=== PATIENT | male | born 1965 | race Caucasian/White ===

== ENCOUNTER → 2017-05-25 | Day surgery (SDC) | payer OTHER ==
[~2017-05-25] MED LIST: DEXAMETHASONE SOD PHOS 20 MG/5 ML VIAL.; FAMOTIDINE 20 MG/2 ML VIAL; LIDOCAINE 1% PF 2 ML VIAL. ID; MIDAZOLAM HCL/PF 2 MG/2 ML VIAL.; MORPHINE SULFATE 2 MG/ML DISP.SYRIN. IV; ONDANSETRON PF 4 MG/2 ML VIAL.; PROCHLORPERAZINE 10 MG/2 ML VIAL. IV; PROPOFOL 20 ML IV; ROCURONIUM 50 MG/5 ML VIAL.; SEVOFLURANE 61 TO 120 MINUTES. IH; ceFAZolin 2GM PREMIX 2 GM/50 ML BAG IV; fentaNYL PF VIAL 100 MCG/2 ML VIAL; fentaNYL PF VIAL 100 MCG/2 ML VIAL IV
[2017-05-25] MEDS: IV RINGERS,LACTATED 1000ML 1,000 ML IV (11:13)
[2017-05-25] MEDS: BUPIVACAINE-EPI 0.25%-1:200000 50 ML VIAL. (12:25)
[2017-05-25] MEDS: fentaNYL PF VIAL 100 MCG/2 ML VIAL IV ×5 (14:02→14:31)
[2017-05-25] MEDS: HYDROmorphone 2 MG/ML VIAL IV ×2 (14:19→14:29)
[2017-05-25] MEDS: oxyCODONE/APAP 5/325 1 TAB TABLET PO (15:15)
== END ==
LOC: SURG 10:47
DX: K43.2 Incisional hernia without obstruction or gangrene (principal); M51.36 Other intervertebral disc degeneration, lumbar region; G89.29 Other chronic pain; F17.200 Nicotine dependence, unspecified, uncomplicated; Z79.01 Long term (current) use of anticoagulants; Z86.711 Personal history of pulmonary embolism; Z98.890 Other specified postprocedural states
CPT/HCPCS: 49656; C1781; J0690; J1100; J1170; J2250; J2405; J2704; J3010; J7120; S0028

== ENCOUNTER → 2017-07-02 | Day surgery (SDC) | payer BC, OTHER ==
[~2017-07-02] MED LIST changes: -DEXAMETHASONE SOD PHOS 20 MG/5 ML VIAL.; -FAMOTIDINE 20 MG/2 ML VIAL; -LIDOCAINE 1% PF 2 ML VIAL. ID; +LIDOCAINE 1%/EPI 1:100,000 30 ML VIAL. IJ; -MIDAZOLAM HCL/PF 2 MG/2 ML VIAL.; -MORPHINE SULFATE 2 MG/ML DISP.SYRIN. IV; -ONDANSETRON PF 4 MG/2 ML VIAL.; -PROCHLORPERAZINE 10 MG/2 ML VIAL. IV; -PROPOFOL 20 ML IV; -ROCURONIUM 50 MG/5 ML VIAL.; -SEVOFLURANE 61 TO 120 MINUTES. IH; -ceFAZolin 2GM PREMIX 2 GM/50 ML BAG IV; -fentaNYL PF VIAL 100 MCG/2 ML VIAL; -fentaNYL PF VIAL 100 MCG/2 ML VIAL IV
[2017-07-02] MEDS: LIDOCAINE 1%/EPI 1:100,000 30 ML VIAL. IJ (08:03)
== END | disposition home or self-care (01) ==
LOC: SURG 07:01
DX: L72.0 Epidermal cyst (principal); Z86.711 Personal history of pulmonary embolism; Z98.890 Other specified postprocedural states; Z82.49 Family history of ischemic heart disease and other diseases of the circulatory system; Z72.89 Other problems related to lifestyle; Z88.5 Allergy status to narcotic agent; Z79.899 Other long term (current) drug therapy; M51.37 Other intervertebral disc degeneration, lumbosacral region; Z86.718 Personal history of other venous thrombosis and embolism; E66.9 Obesity, unspecified; Z87.891 Personal history of nicotine dependence; Z83.3 Family history of diabetes mellitus
CPT/HCPCS: 11422; 88304; J3490

== ENCOUNTER 2017-11-02 08:32 | Emergency (ER) | payer OTHER, BC ==
[~2017-11-02] VITALS: Ht 182.9 cm; Wt 95.3 kg
[~2017-11-02 08:32] MED LIST changes: +CITA20TA6 PO; +CYCL10TA2 PO; +Enoxaparin Sodium SQ; +HYDR-971 PO; +Hydrocodone/Acetaminophen PO; +IBUP-1060 PO; -LIDOCAINE 1%/EPI 1:100,000 30 ML VIAL. IJ; +NAPR500T8 PO; +OXYC-323 PO; +WARF-78 PO
[2017-11-02] MEDS ORDERED: IPRATROPIUM BROMIDE 0.5 MG/2.5 ML NEBU. ONE (09:00)
[2017-11-02] MEDS ORDERED: methylPREDNISolone SOD SUCC PF 125 MG/2 ML VIAL. IV ONE (09:00)
[2017-11-02] MEDS ORDERED: ALBUTEROL SULFATE 2.5 MG/3 ML NEBU. ONE (09:00)
[2017-11-02] MEDS: IPRATROPIUM BROMIDE 0.5 MG/2.5 ML NEBU. NEB ONE (09:08)
[2017-11-02 09:16] LABS: BASO # 0.1 x10^3/uL (0.0-0.2); BASO % 1 % (0-3); EOS # 0.3 x10^3/uL (0.0-0.7); EOS % 4 % (0-3); HEMATOCRIT 43.5 % (39.0-53.0); HEMOGLOBIN 15.1 g/dL (13.0-17.5); LYMPH # 3.8 x10^3/uL (1.0-4.8); LYMPH % 48 % (24-48); MEAN CORPUSCULAR HEMOGLOBIN 32 pg (25-35); MEAN CORPUSCULAR HGB CONC 35 g/dL (31-37); MEAN CORPUSCULAR VOLUME 93 fL (79-100); MONO # 0.7 x10^3/uL (0.0-1.1); MONO % 8 % (0-9); NEUT # 3.1 x10^3uL (1.8-7.7); NEUT % 39 % (31-73); PLATELET COUNT 205 x10^3/uL (140-400); RED BLOOD COUNT 4.65 x10^6/uL (4.30-5.70); RED CELL DISTRIBUTION WIDTH 13.4 % (11.5-14.5); WHITE BLOOD COUNT 7.9 x10^3/uL (4.0-11.0)
[2017-11-02 09:20] LABS: CALCIUM 8.9 mg/dL (8.5-10.1); CREATININE 1.1 mg/dL (0.7-1.3); GFR 70.6; POTASSIUM 4.3 mmol/L (3.5-5.1)
[2017-11-02 09:25] LABS: ALBUMIN 3.8 g/dL (3.4-5.0); TOTAL BILIRUBIN 0.7 mg/dL (0.2-1.0); TOTAL PROTEIN 7.5 g/dL (6.4-8.2)
[2017-11-02] MEDS ORDERED: ALBUTEROL SULFATE 2.5 MG/3 ML NEBU. CONT NEB ONE (09:30)
--- NOTE | 2017-11-02 09:36 | EKG ---
[facility] [address] [place] [address] Test Date: 2017-11-02 Test Time: 08:58:13 Pat Name: SUE KERR Department: Room: Gender: M Teradata Developer: : [id number] Requested By: ART PERALTA Order Number: [id number] Reading MD: Antony Eaton MD Measurements Intervals [place] Rate: 93 P: 53 DE: 142 QRS: 76 QRSD: 102 T: 73 QT: 346 QTc: 433 Interpretive Statements SINUS RHYTHM Electronically Signed On 11-02-2017 12:07:12 CDT by Antony Eaton MD
--- NOTE | 2017-11-02 10:41 | RAD ---
EXAM: Chest, 2 views. HISTORY: Shortness of breath. COMPARISON: 03/01/2014. FINDINGS: Frontal and lateral views of the chest are obtained. There is no infiltrate, pleural effusion or pneumothorax. The heart is normal in size. There are few calcified granulomas. IMPRESSION: No acute pulmonary finding. Electronically signed by: Nina Feliciano MD (11/02/2017 10:38 AM) [place] [id number]
[2017-11-02 11:42] VITALS: BP 123/63
--- NOTE | 2017-11-02 16:16 | PHYS DOC ---
Past Medical History Past Medical History: DVT, Pneumonia, Other Additional Past Medical Histor: BBB, chronic low back pain,PE Past Surgical History: Other Additional Past Surgical Histo: R leg, lower back, bilat wrists, thumb Alcohol Use: None Drug Use: None Adult General Chief Complaint Chief Complaint: SHORTNESS OF BREATH HPI HPI Patient is a 52-year-old male who presents with complaint of cough and shortness of breath. Patient states that he has had symptoms of upper respiratory infection for the last week. He states that yesterday he was seen at urgent care and was prescribed antibiotics. He indicates that this morning symptoms have gotten much worse and now he is very short of breath and wheezing. He does admit to tobacco use but states that he has felt so bad for the last 2 days that he has not been able to smoke. He denies any chest pain but states that he feels so tight in his chest that he is not able to get a decent breath in. Review of Systems Review of Systems Constitutional: Denies fever or chills [] Respiratory: Positive cough and shortness of breath[] Cardiovascular: Complains of chest tightness without pain[] GI: Denies abdominal pain, nausea, vomiting or diarrhea [] Musculoskeletal: Denies back pain or joint pain [] Integument: Denies rash or skin lesions [] All other systems were reviewed and found to be within normal limits, except as documented in this note. Current Medications Current Medications Current Medications Medications (Trade) Dose Ordered Sig/Ewa Start Time Stop Time Status Last Admin Dose Admin Albuterol Sulfate (Ventolin Neb Soln) 10 mg 1X ONCE 11/02/17 09:30 11/02/17 09:31 DC Ipratropium [place] (Atrovent) 0.5 mg 1X ONCE 11/02/17 09:00 11/02/17 09:06 DC 11/02/17 09:08 0.5 MG Methylprednisolone Sodium Succinate (SOLU-Medrol 125MG VIAL) 125 mg 1X ONCE 11/02/17 09:00 11/02/17 09:06 DC Allergies Allergies Allergies Coded Allergies Type Severity Reaction Last Updated Verified No Known Drug Allergies 07/02/17 No Physical Exam Physical Exam Constitutional: Well developed, well nourished, no acute distress, non-toxic appearance. [] HENT: Normocephalic, atraumatic, bilateral external ears normal, oropharynx moist, no oral exudates, nose normal. [] Eyes: PERRLA, EOMI, conjunctiva normal, no discharge. [] Neck: Normal range of motion, no tenderness, supple, no stridor. [] Cardiovascular:Heart rate regular rhythm, no murmur [] Lungs & Thorax: Bilateral breath sounds clear to auscultation [] Abdomen: Bowel sounds normal, soft, no tenderness, no masses, no pulsatile masses. [] Skin: Warm, dry, no erythema, no rash. [] Back: No tenderness, no CVA tenderness. [] Extremities: No tenderness, no cyanosis, no clubbing, ROM intact, no edema. [] Neurologic: Alert and oriented X 3, normal motor function, normal sensory function, no focal deficits noted. [] Psychologic: Affect normal, judgement normal, mood normal. [] Current Patient Data Vital Signs Vital Signs Date Time Temp Pulse Resp B/P (MAP) Pulse Ox O2 Delivery O2 Flow Rate FiO2 11/02/17 11:12 75 14 118/64 (82) 94 Room Air 11/02/17 08:37 97.7 97.7 Lab Values Laboratory Tests Test 11/02/17 09:01 White Blood Count 7.9 x10^3/uL (4.0-11.0) Red Blood Count 4.65 x10^6/uL (4.30-5.70) Hemoglobin 15.1 g/dL (13.0-17.5) Hematocrit 43.5 % (39.0-53.0) Mean Corpuscular Volume 93 fL (79-100) Mean Corpuscular Hemoglobin 32 pg (25-35) Mean Corpuscular Hemoglobin Concent 35 g/dL (31-37) Red Cell Distribution Width 13.4 % (11.5-14.5) Platelet Count 205 x10^3/uL (140-400) Neutrophils (%) (Auto) 39 % (31-73) Lymphocytes (%) (Auto) 48 % (24-48) Monocytes (%) (Auto) 8 % (0-9) Eosinophils (%) (Auto) 4 % (0-3) H Basophils (%) (Auto) 1 % (0-3) Neutrophils # (Auto) 3.1 x10^3uL (1.8-7.7) Lymphocytes # (Auto) 3.8 x10^3/uL (1.0-4.8) Monocytes # (Auto) 0.7 x10^3/uL (0.0-1.1) Eosinophils # (Auto) 0.3 x10^3/uL (0.0-0.7) Basophils # (Auto) 0.1 x10^3/uL (0.0-0.2) D-Dimer (Marely) 0.39 ug/mlFEU (0.00-0.50) Sodium Level 135 mmol/L (136-145) L Potassium Level 4.3 mmol/L (3.5-5.1) Chloride Level 102 mmol/L (98-107) Carbon Dioxide Level 22 mmol/L (21-32) Anion Gap 11 (6-14) Blood Urea Nitrogen 18 mg/dL (8-26) Creatinine 1.1 mg/dL (0.7-1.3) Estimated GFR (Cockcroft-Gault) 70.6 BUN/Creatinine Ratio 16 (6-20) Glucose Level 106 mg/dL (70-99) H Calcium Level 8.9 mg/dL (8.5-10.1) Total Bilirubin 0.7 mg/dL (0.2-1.0) Aspartate Amino Transferase (AST) 19 U/L (15-37) Alanine Aminotransferase (ALT) 39 U/L (16-63) Alkaline Phosphatase 89 U/L (46-116) Troponin I Quantitative < 0.017 ng/mL (0.000-0.055) Total Protein 7.5 g/dL (6.4-8.2) Albumin 3.8 g/dL (3.4-5.0) Albumin/Globulin Ratio 1.0 (1.0-1.7) Laboratory Tests 11/02/17 09:01 Laboratory Tests 11/02/17 09:01 EKG EKG [] Interpretation Time: EKG demonstrates a normal sinus rhythm with rate of 93. No significant ST segment abnormalities are noted on this exam. Radiology/Procedures Radiology/Procedures [] Impressions: Chest x-ray demonstrates no acute process. Course & Med Decision Making Course & Med Decision Making Pertinent Labs and Imaging studies reviewed. (See chart for details) [] Dragon Disclaimer Dragon Disclaimer This electronic medical record was generated, in whole or in part, using a voice recognition dictation system. Departure Departure Impression: Primary Impression: Bronchitis, acute, with bronchospasm Disposition: HOME, SELF-CARE Condition: STABLE Patient Instructions: Bronchospasm, Adult, Bronchitis Additional Instructions: Take prescribed medications as directed and follow up with your primary provider in the next few days. ART PERALTA Jr. DO Nov 02, 2017 16:16
== END 2017-11-02 12:20 | disposition home or self-care (01) ==
LOC: ER 08:32
DX: J20.9 Acute bronchitis, unspecified (principal); Z86.718 Personal history of other venous thrombosis and embolism
CPT/HCPCS: 36415; 71046; 80053; 84484; 85025; 85379; 93005; 94644; 99285; J7644; 94640

== ENCOUNTER 2018-10-06 08:14 | Day surgery (SDC) | payer OTHER, BC ==
[~2018-10-06] VITALS: Ht 182.9 cm; Wt 95.0 kg
[~2018-10-06 08:14] MED LIST changes: +ACETAMINOPHEN 500 MG TABLET PO PRN; +BUPIVAC MPF-EPI 0.5%-1:200000 30 ML VIAL. ONE; +BUPIVACAINE-EPI 0.25%-1:200000 MPF 30 ML VIAL. ONE; +HYDR-3164 PO; -HYDR-971 PO; +HYDROmorphone 2 MG/ML VIAL IV PRN; +MORPHINE SULFATE 2 MG/ML VIAL. IV PRN; +ONDANSETRON PF 4 MG/2 ML VIAL. IV PRN; -OXYC-323 PO; +OXYC1TAB15 PO; +PROCHLORPERAZINE 10 MG/2 ML VIAL. IV PRN; +fentaNYL PF VIAL 100 MCG/2 ML VIAL IV PRN
[2018-10-06] MEDS ORDERED: DEXAMETHASONE SOD PHOS 4 MG/ML VIAL ONE (08:31)
[2018-10-06] MEDS ORDERED: ONDANSETRON PF 4 MG/2 ML VIAL. ONE (08:31)
[2018-10-06] MEDS ORDERED: LIDOCAINE 2% PF 5 ML VIAL. ONE (08:31)
[2018-10-06] MEDS ORDERED: PROPOFOL 20 ML IV ONE (08:31)
[2018-10-06] MEDS ORDERED: FAMOTIDINE 20 MG/2 ML VIAL ONE (08:31)
[2018-10-06] MEDS ORDERED: ROCURONIUM 50 MG/5 ML VIAL. ONE ×2 (08:32→10:10)
[2018-10-06] MEDS ORDERED: MIDAZOLAM HCL/PF 2 MG/2 ML VIAL. ONE (08:32)
[2018-10-06] MEDS ORDERED: fentaNYL PF VIAL 100 MCG/2 ML VIAL ONE ×2 (08:32→11:26)
[2018-10-06] MEDS: IV RINGERS,LACTATED 1000ML 1,000 ML IV SCH ×2 (08:50→08:53)
[2018-10-06] MEDS ORDERED: GLYCOPYRROLATE 1 MG/5 ML VIAL. ONE (09:52)
[2018-10-06] MEDS ORDERED: NEOSTIGMINE METHYLSULFATE 5 MG/5 ML SYRINGE. ONE (09:52)
[2018-10-06] MEDS ORDERED: ceFAZolin 2GM PREMIX 2 GM/50 ML BAG IV ONE (10:00)
[2018-10-06] MEDS ORDERED: ePHEDrine PF IN SALINE 50 MG/10 ML SYRINGE. IV ONE (10:26)
[2018-10-06] MEDS ORDERED: SEVOFLURANE > 120 MINUTES. IH ONE (10:55)
--- NOTE | 2018-10-06 11:02 | PDOC4 ---
Operative Note Operative Note Date: 10/06/2018 Preoperative diagnosis: Recurrent ventral hernia Postoperative diagnosis: Same Procedure: Removal of previous mesh repair of ventral hernia with Phasix mesh Surgeon: Juan Specimen: Previous mesh Dictation: Patient is 53-year-old gentleman who previously had a umbilical hernia repair with a recurrence underwent a second repair of the ventral hernia with additional mesh he has subsequently returned with complaints of pain at the umbilicus ultrasound showed recurrence of a hernia along the lateral aspect of the mesh. Procedure of explantation of previous mesh with repair of hernia and placement of mesh was explained to the patient detail risk benefits were also discussed including bleeding infection alternatives to this procedure also discussed with patient who seemed to understand and gave both verbal and written consent to have the procedure performed. Patient was taken to the operating room placed in supine position general anesthesia was initiated once patient was asleep and intubated his abdomen was prepped and draped usual sterile fashion using ChloraPrep and area in the left upper quadrant was injected with quarter percent Marcaine with epinephrine incision was made with 11 blade scalpel and using a 5 mm Visiport was placed under direct visualization creating pneumoperitoneum once this was complete the abdomen was inspected with 5 mm port showed adhesions from the omentum to the previous repair site to the previous placed mesh. A 8mm da Nora port was placed in the left mid abdomen a second da Nora port was placed in the left lower abdomen and the 5 mm Visiport was changed out for an 8mm da Nora port at this point the robot was brought in and docked all port sites surgeon went to the robotic console using grasper and Endo Kang scissors the omental adhesions were taken down which gave a clear view of the previously implanted mesh. Of note the fascia was intact there was no hernia noted as per the ultrasound also noted that the initial mesh was not attached along the superior border and had wadded up to some degree at the umbilicus. At this point the mesh was removed with sharp and blunt dissection. There was a hernia defect at the umbilicus this was closed with a running nonabsorbable 20V lock suture. And the whole area where the mesh had been removed was then covered with 10 x 10 cm Phasix covered mesh. This was sewn into place with a 20V LOC absorbable suture. Surgeon return to the operative field the explanted mesh was placed within an Endo Catch bag and removed from the mid left abdominal port site. The fascial defect at the left mid abdomen abdominal port site was closed with a mecniv-qy-vanio 0 Vicryl suture. All ports then removed the port sites were all closed for septic and a Monocryl Mastisol Steri-Strips and island dressings were applied. Patient was awakened and asked bated operating room taken to recovery in stable condition all sponge instrument needle counts listed as correct estimated blood loss 5 mL. MARY WALLIS MD Oct 06, 2018 11:02
--- NOTE | 2018-10-06 11:04 | DISCH ---
DISCHARGE INSTRUCTIONS Condition on Discharge Condition on Discharge: Stable Activity After Discharge Activity Instructions for Disc: Avoid exertion Other activity instructions: no lifting more than 20 pounds for 2 weeks Diet after Discharge Diet after Discharge: Regular Wound Incision Care Other wound/incision instructi: May shower in 24 hours Contacting the after DC Call your doctor for: If your condition worsens Follow-Up Follow up with: Dr. Wallis in 2 weeks MARY WALLIS MD Oct 06, 2018 11:04
[2018-10-06] MEDS ORDERED: oxyCODONE/APAP 5/325 1 TAB TABLET PO ONE ×2 (11:30→12:15)
[2018-10-06] MEDS: fentaNYL PF VIAL 100 MCG/2 ML VIAL IV PRN ×2 (11:31→11:44)
[2018-10-06] MEDS ORDERED: OXYC1TAB15 PO (11:35)
[2018-10-06 12:15] VITALS: BP 117/71
--- NOTE | 2018-10-10 17:07 | PATHOLOGY ---
[facility] Accession Number: [id number] . 01 Material submitted: . hernia - VENTRAL HERNIA MESH . 01 Clinical history: . Ventral hernia . 02 Diagnosis: Robotic laparoscopic ventral hernia repair (gross examination only): - Segment of mesh. . (JPM:mml; 10/10/2018) [facility]/10/10/2018 . 02 Electronically signed: . Richie Kelly MD, Pathologist NPI- [id number] . 01 Gross description: . The specimen is received in formalin, labeled "Yasmany Mehta, mesh". Received is a segment of pale parks mesh with adherent fibromembranous tissue measuring 5.1 x 4.2 x 2.0 cm in greatest dimensions. Gross photographs are taken. Sections are not submitted. ([facility]; 10/07/2018) QAC/QAC . 02 Pathologist provided ICD-10: K43.9 . 02 CPT . 620442 Specimen Comment: A courtesy copy of this report has been sent to Specimen Comment: [phone], . Specimen Comment: Report sent to / DR URBANO Performed at: 01 [facility] [address] [facility] [address], [place] [id number] MD Richard Flores MD Phone: [phone] Performed at: 02 [facility] [address], [place] [id number] MD Richie Kelly MD Phone: [phone]
== END 2018-10-06 12:35 | disposition home or self-care (01) ==
LOC: SURG 08:14
PROVIDERS: ATTEND Surgery
DX: K43.2 Incisional hernia without obstruction or gangrene (principal)
CPT/HCPCS: 49656; A7015; C1781; J0171; J0696; J1100; J2001; J2250; J2405; J2704; J2710; J3010; J3490; J7120